=== PATIENT | male | born 1945 | race African-American/Black ===

== ENCOUNTER 2018-09-21 09:10 | Emergency (ER) | payer MEDICARE ==
[~2018-09-21] VITALS: Ht 188 cm; Wt 111.1 kg
--- NOTE | 2018-09-21 10:42 | PHYS DOC ---
Past Medical History Past Medical History: Diabetes-Type II, Hypertension, Stroke Past Surgical History: No Surgical History Alcohol Use: None Drug Use: None Adult General Chief Complaint Chief Complaint: CONSTIPATION HPI HPI Patient is a 73 year old male who is presenting with unable to have a bowel movement or urinate for the last 24-48 hours. He says his abdomen is getting more distended he says that he just noticed this yesterday. He says he has had this problem before he says he has come to this emergency room for this problem however chart review does reveal that is not the case. Patient says he is on some pain medication he does not know what it is. Patient has had no fever no vomiting positive nausea Review of Systems Review of Systems Constitutional: Denies fever or chills [] Respiratory: Denies cough or shortness of breath [] Cardiovascular: No additional information not addressed in HPI [] GI: : Burning with urination Musculoskeletal: Denies back pain or joint pain [] Integument: Denies rash or skin lesions [] Neurologic: Denies headache, focal weakness or sensory changes [] Endocrine: Denies polyuria or polydipsia [] All other systems were reviewed and found to be within normal limits, except as documented in this note. Current Medications Current Medications Current Medications Medications (Trade) Dose Ordered Sig/Salo Start Time Stop Time Status Last Admin Dose Admin Iohexol (Omnipaque 300 Mg/ml) 60 ml 1X ONCE 09/21/18 11:30 09/21/18 11:31 DC 09/21/18 11:38 60 ML Magnesium Citrate (Citroma) 296 ml 1X ONCE 09/21/18 12:15 09/21/18 12:16 DC 09/21/18 12:15 296 ML Sodium Monofluorophosphate (Fleet Adult) 133 ml 1X ONCE 09/21/18 12:45 09/21/18 12:46 DC 09/21/18 12:45 133 ML Allergies Allergies Allergies Coded Allergies Type Severity Reaction Last Updated Verified No Known Drug Allergies 04/08/15 No Physical Exam Physical Exam Constitutional: Well developed, well nourished, no acute distress, non-toxic appearance. [] HENT: Normocephalic, atraumatic, bilateral external ears normal, oropharynx moist, no oral exudates, nose normal. [] Eyes: PERRLA, EOMI, conjunctiva normal, no discharge. [] Neck: Normal range of motion, no tenderness, supple, no stridor. [] Cardiovascular:Heart rate regular rhythm, no murmur [] Lungs & Thorax: Bilateral breath sounds clear to auscultation [] Abdomen: Abdomen is very distended mildly tender decreased BOWEL SOUNDS Sk in: Warm, dry, no erythema, no rash. [] Back: No tenderness, no CVA tenderness. [] Extremities: No tenderness, no cyanosis, no clubbing, ROM intact, no edema. [] Neurologic: Alert and oriented X 3, normal motor function, normal sensory function, no focal deficits noted. [] Psychologic: Affect normal, judgement normal, mood normal. [] Current Patient Data Vital Signs Vital Signs Date Time Temp Pulse Resp B/P (MAP) Pulse Ox O2 Delivery O2 Flow Rate FiO2 09/21/18 09:23 97.9 103 16 178/113 (134) 98 Room Air 97.9 Lab Values Laboratory Tests Test 09/21/18 10:49 White Blood Count 11.3 x10^3/uL (4.0-11.0) H Red Blood Count 5.44 x10^6/uL (4.30-5.70) Hemoglobin 15.0 g/dL (13.0-17.5) Hematocrit 44.8 % (39.0-53.0) Mean Corpuscular Volume 82 fL (79-100) Mean Corpuscular Hemoglobin 28 pg (25-35) Mean Corpuscular Hemoglobin Concent 34 g/dL (31-37) Red Cell Distribution Width 14.0 % (11.5-14.5) Platelet Count 319 x10^3/uL (140-400) Neutrophils (%) (Auto) 86 % (31-73) H Lymphocytes (%) (Auto) 8 % (24-48) L Monocytes (%) (Auto) 6 % (0-9) Eosinophils (%) (Auto) 0 % (0-3) Basophils (%) (Auto) 1 % (0-3) Neutrophils # (Auto) 9.7 x10^3uL (1.8-7.7) H Lymphocytes # (Auto) 0.9 x10^3/uL (1.0-4.8) L Monocytes # (Auto) 0.6 x10^3/uL (0.0-1.1) Eosinophils # (Auto) 0.0 x10^3/uL (0.0-0.7) Basophils # (Auto) 0.1 x10^3/uL (0.0-0.2) Segmented Neutrophils % 79 % (35-66) H Band Neutrophils % 7 % (0-9) Lymphocytes % 9 % (24-48) L Monocytes % 4 % (0-10) Eosinophils % 1 % (0-5) Platelet Estimate Adequate (ADEQUATE) Urine Collection Type Unknown Urine Color Yellow Urine Clarity Clear Urine pH 6.5 Urine Specific St[place] 1.025 Urine Protein Negative mg/dL (NEG-TRACE) Urine Glucose (UA) Negative mg/dL (NEG) Urine Ketones (Stick) Negative mg/dL (NEG) Urine Blood Negative (NEG) Urine Nitrite Negative (NEG) Urine Bilirubin Negative (NEG) Urine Urobilinogen Dipstick 1.0 mg/dL (0.2 mg/dL) Urine Leukocyte Esterase Negative (NEG) Urine RBC Occ /HPF (0-2) Urine WBC Occ /HPF (0-4) Urine Squamous Epithelial Cells Occ /LPF Urine Bacteria Few /HPF (0-FEW) Urine Mucus Mod /LPF Sodium Level 139 mmol/L (136-145) Potassium Level 4.1 mmol/L (3.5-5.1) Chloride Level 101 mmol/L (98-107) Carbon Dioxide Level 26 mmol/L (21-32) Anion Gap 12 (6-14) Blood Urea Nitrogen 20 mg/dL (8-26) Creatinine 1.4 mg/dL (0.7-1.3) H Estimated GFR (Cockcroft-Gault) 59.8 BUN/Creatinine Ratio 14 (6-20) Glucose Level 175 mg/dL (70-99) H Calcium Level 9.4 mg/dL (8.5-10.1) Total Bilirubin 0.5 mg/dL (0.2-1.0) Aspartate Amino Transferase (AST) 25 U/L (15-37) Alanine Aminotransferase (ALT) 26 U/L (16-63) Alkaline Phosphatase 152 U/L (46-116) H Total Protein 9.3 g/dL (6.4-8.2) H Albumin 4.1 g/dL (3.4-5.0) Albumin/Globulin Ratio 0.8 (1.0-1.7) L Laboratory Tests 12/16/18 10:49 Laboratory Tests 09/21/18 10:49 EKG EKG [] Radiology/Procedures Radiology/Procedures [] Impressions: INDICATION: Abdominal pain, constipation. COMPARISON: None available TECHNIQUE: Multiple axial CT images of the abdomen and pelvis were obtained after the intravenous administration of 60 mL Omnipaque 300. Coronal and sagittal reformats are provided. FINDINGS: There is bibasilar subsegmental atelectasis. Heart size within normal limits. The liver, spleen, bilateral adrenal glands, pancreas and gallbladder are normal in appearance. There is an infrarenal abdominal aortic aneurysm. The posterior margin of the aorta abutting the vertebral column. Infrarenal abdominal aorta measures 3.4 x 3.0 cm. Mild calcified and noncalcified atheromatous plaque is present. There are no pathologically enlarged abdominal or pelvic lymph nodes. There is no free fluid or free intraperitoneal air. There is mild distention of the rectum containing stool measuring up to 8.7 x 7.1 cm. Otherwise, small and large bowel are normal in caliber. Mild colonic diverticulosis is identified. No adjacent inflammatory changes are noted. No evidence for bowel obstruction. Moderate amount stool is noted in the right colon. Normal appendix is visualized. There is a small hiatal hernia. There is a simple appearing renal cortical cyst measuring 4.0 cm in the midpole the left kidney. In the superior pole the left kidney anteriorly there is a simple cyst measuring 2.1 cm. There is a simple cyst in the anterior interpolar right kidney measuring 15 mm. No suspicious renal masses are identified. There is no hydronephrosis. There is a Williamson catheter within the urinary bladder which contains small amount of gas. No suspicious pelvic abnormality is identified. Remote screw tract is identified in the proximal right femur. Mild femoral acetabular osteoarthrosis. No suspicious osseous abnormality. IMPRESSION: 1. There is mild to moderate distention of the rectum with fecal stasis measuring 8.7 x 7.1 cm. No evidence for bowel obstruction or inflammation. 2. No acute abnormality is identified in abdomen and pelvis. No suspicious mass. Electronically signed by: Chad Armenta MD (09/21/2018 11:50 AM) [facility] DICTATED and SIGNED BY: CHAD ARMENTA MD DATE: 09/21/18 1148 Course & Med Decision Making Course & Med Decision Making Pertinent Labs and Imaging studies reviewed. (See chart for details) URINARY RETENTION, CONSTIPATION NO CT IMAGING IN SYSTEM VERY DISTENDED ABDOMEN LABS, CT SCAN, BLADDER SCAN. WILL DO RECTAL WELL [] Noted the CT read: I performed a manual disimpaction removed a large amount of stool however given the CT read we did then do a enema and a very very large amount of stool returned patient felt much much better. We did place a Williamson catheter due acute urinary obstruction. I referred him for an outpatient follow- up for urology. We'll give Flomax we gave lactulose prescription he knows how to take care of the Williamson return precautions were discussed and he voiced understanding. He was encouraged to take stool softeners with his pain medication this likely the etiology of his symptoms. Dragon Disclaimer Dragon Disclaimer This electronic medical record was generated, in whole or in part, using a voice recognition dictation system. Departure Departure Impression: Primary Impression: Fecal impaction in rectum Additional Impression: Urinary retention Disposition: HOME, SELF-CARE Condition: IMPROVED Referrals: ROZINA MACEDO MD (PCP) Scripts Tamsulosin Hcl (FLOMAX) 0.4 Mg Cap.er.24h 1 CAP PO DAILY, #30 CAP 0 Refills Prov: HERBER TINEO MD 09/21/18 Lactulose (LACTULOSE) 20 Gm/30 Ml Solution 20 GM PO BID, #1 MISC Prov: HERBER TINEO MD 09/21/18 Problem Qualifiers HERBER TINEO MD Sep 21, 2018 10:42
[2018-09-21 11:02] LABS: BASO # 0.1 x10^3/uL (0.0-0.2); BASO % 1 % (0-3); EOS % 0 % (0-3); HEMATOCRIT 44.8 % (39.0-53.0); LYMPH # 0.9 x10^3/uL (1.0-4.8); LYMPH % 8 % (24-48); MEAN CORPUSCULAR HEMOGLOBIN 28 pg (25-35); MEAN CORPUSCULAR HGB CONC 34 g/dL (31-37); MEAN CORPUSCULAR VOLUME 82 fL (79-100); MONO # 0.6 x10^3/uL (0.0-1.1); MONO % 6 % (0-9); NEUT # 9.7 x10^3uL (1.8-7.7); NEUT % 86 % (31-73); PLATELET COUNT 319 x10^3/uL (140-400); RED BLOOD COUNT 5.44 x10^6/uL (4.30-5.70); WHITE BLOOD COUNT 11.3 x10^3/uL (4.0-11.0)
[2018-09-21 11:03] LABS: BILIRUBIN,URINE NEGATIVE (NEG); CLARITY,URINE CLEAR; COLOR,URINE YELLOW; NITRITE,URINE NEGATIVE (NEG); PH,URINE 6.5; PROTEIN,URINE NEGATIVE (NEG-TRACE)
[2018-09-21 11:13] LABS: BACTERIA,URINE FEW /HPF (0-FEW); CALCIUM 9.4 mg/dL (8.5-10.1); CREATININE 1.4 mg/dL (0.7-1.3); GFR 59.8; POTASSIUM 4.1 mmol/L (3.5-5.1); RBC,URINE OCC /HPF (0-2); SQUAMOUS EPITHELIAL CELL,UR OCC /LPF; WBC,URINE OCC /HPF (0-4)
[2018-09-21 11:18] LABS: ALBUMIN 4.1 g/dL (3.4-5.0); ALBUMIN/GLOBULIN RATIO 0.8 (1.0-1.7); TOTAL BILIRUBIN 0.5 mg/dL (0.2-1.0); TOTAL PROTEIN 9.3 g/dL (6.4-8.2)
[2018-09-21 11:29] LABS: % BANDS 7 % (0-9); % EOS 1 % (0-5); % LYMPHS 9 % (24-48); % MONOS 4 % (0-10); % SEGS 79 % (35-66)
[2018-09-21] MEDS ORDERED: IOHEXOL 300 MG/ML 100ML VIAL. IV ONE (11:30)
[2018-09-21 11:32] LABS: PLT ESTIMATE ADEQUATE (ADEQUATE)
--- NOTE | 2018-09-21 11:54 | RAD ---
PQRS Compliance Statement: One or more of the following individualized dose reduction techniques were utilized for this examination: 1. Automated exposure control 2. Adjustment of the mA and/or kV according to patient size 3. Use of iterative reconstruction technique CT abdomen/pelvis with contrast 09/21/2018 10:25 AM INDICATION: Abdominal pain, constipation. COMPARISON: None available TECHNIQUE: Multiple axial CT images of the abdomen and pelvis were obtained after the intravenous administration of 60 mL Omnipaque 300. Coronal and sagittal reformats are provided. FINDINGS: There is bibasilar subsegmental atelectasis. Heart size within normal limits. The liver, spleen, bilateral adrenal glands, pancreas and gallbladder are normal in appearance. There is an infrarenal abdominal aortic aneurysm. The posterior margin of the aorta abutting the vertebral column. Infrarenal abdominal aorta measures 3.4 x 3.0 cm. Mild calcified and noncalcified atheromatous plaque is present. There are no pathologically enlarged abdominal or pelvic lymph nodes. There is no free fluid or free intraperitoneal air. There is mild distention of the rectum containing stool measuring up to 8.7 x 7.1 cm. Otherwise, small and large bowel are normal in caliber. Mild colonic diverticulosis is identified. No adjacent inflammatory changes are noted. No evidence for bowel obstruction. Moderate amount stool is noted in the right colon. Normal appendix is visualized. There is a small hiatal hernia. There is a simple appearing renal cortical cyst measuring 4.0 cm in the midpole the left kidney. In the superior pole the left kidney anteriorly there is a simple cyst measuring 2.1 cm. There is a simple cyst in the anterior interpolar right kidney measuring 15 mm. No suspicious renal masses are identified. There is no hydronephrosis. There is a Williamson catheter within the urinary bladder which contains small amount of gas. No suspicious pelvic abnormality is identified. Remote screw tract is identified in the proximal right femur. Mild femoral acetabular osteoarthrosis. No suspicious osseous abnormality. IMPRESSION: 1. There is mild to moderate distention of the rectum with fecal stasis measuring 8.7 x 7.1 cm. No evidence for bowel obstruction or inflammation. 2. No acute abnormality is identified in abdomen and pelvis. No suspicious mass. Electronically signed by: Ramona Georges MD (09/21/2018 11:50 AM) [facility]
[2018-09-21 11:56] VITALS: BP 173/90
[2018-09-21] MEDS ORDERED: LACT20SO PO (12:04)
[2018-09-21] MEDS ORDERED: TAMS0.4C97 PO (12:04)
[2018-09-21] MEDS ORDERED: MAGNESIUM CITRATE 296 ML SOLUTION. PO ONE (12:15)
[2018-09-21] MEDS ORDERED: SODIUM PHOSPHATES 19/7GM 133 ML ENEMA. PR ONE (12:45)
== END 2018-09-21 14:14 | disposition home or self-care (01) ==
LOC: ER 09:10
DX: K56.41 Fecal impaction (principal); R33.9 Retention of urine, unspecified; I10 Essential (primary) hypertension; E11.9 Type 2 diabetes mellitus without complications; Z86.73 Personal history of transient ischemic attack (TIA), and cerebral infarction without residual deficits
CPT/HCPCS: 36415; 51702; 74177; 80053; 81001; 85007; 85025; 99284; Q9967

== ENCOUNTER 2018-10-19 23:37 | Emergency (ER) | payer MEDICARE ==
[~2018-10-19] VITALS: Ht 190.5 cm; Wt 111.1 kg
[~2018-10-19 23:37] MED LIST: LACT20SO PO; TAMS0.4C97 PO
--- NOTE | 2018-10-20 00:31 | PHYS DOC ---
Past Medical History Past Medical History: Diabetes-Type II, High Cholesterol, Hypertension, Stroke Past Surgical History: Other Additional Past Surgical Histo: RIGHT SHOULDER, RIGHT HIP Alcohol Use: None Drug Use: None Adult General Chief Complaint Chief Complaint: URINE CATHETER PROBLEM HPI HPI Patient is a 73-year-old male who presents with complaint of irritation around the Williamson catheter site. Patient was seen here on September 20 for urinary retention and had a catheter placed. Patient was supposed to follow up with urologist but states that he has not been able to get in to see the urologist as yet. Patient is requesting to have the catheter removed. He denies any fever or abdominal pain. Review of Systems Review of Systems Constitutional: Denies fever or chills [] Respiratory: Denies cough or shortness of breath [] Cardiovascular: No additional information not addressed in HPI [] GI: Denies abdominal pain, nausea, vomiting or diarrhea [] : Complains of penile irritation/pain [] Allergies Allergies Allergies Coded Allergies Type Severity Reaction Last Updated Verified No Known Drug Allergies 04/08/15 No Physical Exam Physical Exam Constitutional: Well developed, well nourished, no acute distress, non-toxic appearance. [] Neck: Normal range of motion, no tenderness, supple, no stridor. [] Cardiovascular: Regular rate and rhythm [] Lungs & Thorax: Bilateral breath sounds clear to auscultation [] Abdomen: Bowel sounds normal, soft, no tenderness. [] : Examination of the anus does demonstrate inflammation catheter site [] Current Patient Data Vital Signs Vital Signs Date Time Temp Pulse Resp B/P (MAP) Pulse Ox O2 Delivery O2 Flow Rate FiO2 10/20/18 00:00 98.2 110 16 212/99 (136) 97 Room Air 98.2 Lab Values Laboratory Tests Test 10/20/18 00:45 Urine Collection Type Unknown Urine Color Yellow Urine Clarity Turbid Urine pH 5.5 Urine Specific [place] 1.015 Urine Protein 30 mg/dL (NEG-TRACE) Urine Glucose (UA) Negative mg/dL (NEG) Urine Ketones (Stick) Negative mg/dL (NEG) Urine Blood Large (NEG) Urine Nitrite Positive (NEG) Urine Bilirubin Negative (NEG) Urine Urobilinogen Dipstick 1.0 mg/dL (0.2 mg/dL) Urine Leukocyte Esterase Large (NEG) Urine RBC Tntc /HPF (0-2) Urine WBC Tntc /HPF (0-4) Urine Squamous Epithelial Cells Few /LPF Urine Amorphous Sediment Present /HPF Urine Bacteria Many /HPF (0-FEW) Urine Hyaline Casts Few /HPF Urine Granular Casts Occasional /HPF Urine Mucus Marked /LPF EKG EKG [] Radiology/Procedures Radiology/Procedures [] Course & Med Decision Making Course & Med Decision Making Pertinent Labs and Imaging studies reviewed. (See chart for details) [] Dragon Disclaimer Dragon Disclaimer This electronic medical record was generated, in whole or in part, using a voice recognition dictation system. Departure Departure Impression: Primary Impression: Encounter for Williamson catheter removal Additional Impression: UTI (urinary tract infection) Disposition: HOME, SELF-CARE Condition: STABLE Referrals: ROZINA MACEDO MD (PCP) Patient Instructions: Williamson Catheter Care, Adult, Urinary Tract Infection Scripts Phenazopyridine Hcl (PYRIDIUM) 100 Mg Tablet 100 MG PO TID PRN for URINARY PAIN, #12 TAB Prov: BRETT GARZA Jr. DO 10/20/18 Sulfamethoxazole/Trimethoprim (BACTRIM DS TABLET) 1 Each Tablet 1 TAB PO BID, #20 TAB Prov: BRETT GARZA Jr. DO 10/20/18 Problem Qualifiers Additional Impression: UTI (urinary tract infection) Urinary tract infection type: site unspecified Hematuria presence: with hematuria Qualified Codes: N39.0 - Urinary tract infection, site not specified ; R31.9 - Hematuria, unspecified BRETT GARZA Jr. DO Oct 20, 2018 00:31
[2018-10-20 00:58] LABS: BILIRUBIN,URINE NEGATIVE (NEG); CLARITY,URINE TURBID; COLOR,URINE YELLOW; NITRITE,URINE POSITIVE (NEG); PH,URINE 5.5; PROTEIN,URINE 30 mg/dL (NEG-TRACE)
[2018-10-20 01:00] VITALS: BP 194/120
[2018-10-20 01:09] LABS: AMORPHOUS SEDIMENT,UR PRESENT /HPF; BACTERIA,URINE MANY /HPF (0-FEW); GRANULAR CASTS,URINE OCCASIONAL /HPF; HYALINE CASTS, URINE FEW /HPF; RBC,URINE TNTC /HPF (0-2); SQUAMOUS EPITHELIAL CELL,UR FEW /LPF; WBC,URINE TNTC /HPF (0-4)
[2018-10-20] MEDS ORDERED: PHEN100T82 PO (01:16)
[2018-10-20] MEDS ORDERED: SULF1TAB24 PO (01:16)
[2018-10-20] MEDS ORDERED: SMZ/TMP 800/160MG TABLET. PO ONE (01:30)
== END 2018-10-20 01:25 | disposition home or self-care (01) ==
LOC: ER 23:37
DX: Z46.6 Encounter for fitting and adjustment of urinary device (principal); N39.0 Urinary tract infection, site not specified; R31.9 Hematuria, unspecified; E78.00 Pure hypercholesterolemia, unspecified; E11.9 Type 2 diabetes mellitus without complications; I10 Essential (primary) hypertension; Z86.73 Personal history of transient ischemic attack (TIA), and cerebral infarction without residual deficits
CPT/HCPCS: 81001; 87086; 87186; 99283